=== PATIENT | male | born 1950 | race Caucasian/White ===

== ENCOUNTER 2016-10-13 17:30 | Emergency (ER) | payer MEDICARE ==
[2016-10-13] MEDS ORDERED: KETOROLAC TROMETHAMINE 30 MG/ML VIAL ONE (18:40)
[2016-10-13] MEDS ORDERED: METOCLOPRAMIDE HCL 10 MG/2 ML VIAL ONE (18:40)
--- NOTE | 2016-10-13 19:17 | RADIOLOGY REPORT ---
HISTORY: Neck spasms COMPARISON: None. FINDINGS: AP, lateral, odontoid, and bilateral oblique views of the cervical spine are obtained. Vertebral body height and alignment are preserved moderate to severe C5-C6 and C6-C7 disc height loss with anterior and posterior spurring. No displaced fracture. No high-grade osseous foraminal stenosis. Prevertebra l soft tissues are nondisplaced. IMPRESSION: 1. No acute abnormality. 2. C5-C6 and C6-C7 degenerative disc disease. Final Electronic Signature: This report was electronically signed by Jasvir Luque MD on 10/13/2016 7:15 PM. keysha /
--- NOTE | 2016-10-13 19:30 | ER PHYSICIAN DOCUMENTATION ---
Physician Documentation [facility] Name:Talita Borrego Age:65 yrs Sex:Male :1950 Arrival Date:10/13/2016 Time:17:30 Bed5 Private MD: Mookie Nelson Disposition: 10/13/16 18:49 Discharged to Home/Self Care. Impression: Cervical Disc Degeneration. - Condition is Good. - Discharge Instructions: NECK PAIN, No Trauma. - Prescriptions for Hydrocodone- Acetaminophen 7.5-325 mg Oral Tablet - take 1 tablet by ORAL route every 6 hours As needed; 20 tablet. Naprosyn 500 mg Oral Tablet - take 1 tablet by ORAL route 2 times per day take with food; 30 tablet. Prednisone 20 mg Oral Tablet - take 3 tablet by ORAL route once daily for 5 days; 15 tablet. - Medical Reconciliation form form. - Follow up: Aaron Parra DO, Jasvir Kiran MD; When: 7 - 10 days; Reason: Recheck today's complaints. - Problem is an acute exacerbation. - Symptoms have improved. HPI: 10/14 08:01 This 65 yrs old Male presents to ER via Private Vehicle with complaints of be Neck Pain, <24hrs Old. 08:01 The patient or guardian complains of decreased range of motion, pain, that is acute, be spasm, stiffness, all began upon awakening this morning. Used massage therapist in past with good results. Active lifestyle and previous arthroscopic knee surgeries. Historical: - Allergies: No known drug Allergies; - Home Meds: 1. Lisinopril Oral 2. Primidone Oral 3. pantoprazole oral - PMHx: Hypertension; - PSHx: Knee surgery; - Tetanus: < 10 years. - Ebola Screening: : Patient negative for fever greater than or equal to 101.5 degrees Fahrenheit, and additional compatible Ebola Virus Disease symptoms. - Immunization history: Flu Vaccine None. - Social history: Smoking status: Patient states was never smoker of tobacco. ROS: 08:01 Neck: Positive for pain with movement, pain at rest, stiffness, Negative for injury or be acute deformity. 08:01 All other systems are negative. Exam: 08:01 Constitutional: This is a well developed, well nourished patient who is awake, alert, be and in acute distress. 08:01 Head/face: Exam is negative for acute changes, obvious evidence of injury or deformity. 08:01 ENT: Exam is negative for acute changes, TM's: are normal, Nose: is normal. 08:01 Neck: External neck: tenderness, that is moderate, C-spine: no acute changes, ROM/movement: limited range of motion, that is moderate. 08:05 Neuro: Motor: is normal, Sensation: is normal, Gait: is steady, at a normal pace, be without difficulty, Deep tendon reflexes are Babinski testing is normal. 08:06 Neck: C-spine: Nexus Criteria: there is no tenderness to the posterior midline, the be patient is not clinically intoxicated, no focal neurologic deficit is appreciated, no distracting injury is present. 08:06 Neck: C-spine: vertebral tenderness, is not appreciated. be Vital Signs: 10/13 17:43 BP 152 / 70; Pulse 74; Resp 16; Temp 98.4(O); Pulse Ox 94% on R/A; Weight 99.79 kg; rh Height 6 ft. 1 in. (185.42 cm); Pain 9/10; 17:43 Body Mass Index 29.03 (99.79 kg, 185.42 cm) rh Danie Coma Score: 10/14 08:06 Eye Response: spontaneous(4). Verbal Response: oriented(5). Motor Response: obeys be commands(6). Total: 15. MDM: 10/13 18:38 Patient medically screened. be 10/14 08:01 Differential diagnosis: arthritis, Cervical Disc Herniation Cervical Discogenic Pain be Cervical Facet Syndrome Degenerative Disc Disease. Data reviewed: vital signs, nurses notes, radiologic studies, plain films, and as a result, I will discharge patient, administer steroids, prednisone, prescribe pain medication, Dilaudid, hydrocodone, Toradol, Naproxen and refer to Orthopedics for possible MRI at future date. 10/13 19:20 Order name: CERVICAL SPINE; 4 VIEWS [id number]; Complete Time: 08:07 EDMS 10/14 08:07 Interpretation: Normal Except: DDD. be Dispensed Medications: 10/13 18:34 Drug: Toradol 30 mg; Route: IM; Site: left gluteus; rh 19:23 Follow up: Response: Pain is decreased 18:34 Drug: Reglan 5 mg; Route: IM; Site: left gluteus; rh 19:23 Follow up: Response: Pain is decreased rh 18:34 Drug: Dilaudid 1 mg; Route: IM; Site: left gluteus; rh 19:23 Follow up: Response: Pain is decreased rh 19:29 Drug: HYDROcodone-acetaminophen (5mg/325 mg) 1-2 tabs 1 tabs; Route: PO; rh 19:29 Follow up: Response: Pharmacy closed - take home med pack rh 19:29 CANCELLED (Other Intervention Used; DONT CARRY MEd): Naproxen 500 mg PO once rh 19:29 Drug: predniSONE 60 mg; Route: PO; rh 19:29 Follow up: Response: No adverse reaction rh Signatures: Mookie Israel MD MD be Hofsess, Rachel
--- NOTE | 2016-10-13 19:30 | ER NURSING DOCUMENTATION ---
Nurse's Notes [facility] Name:Talita Borrego Age:65 yrs Sex:Male :1950 Arrival Date:10/13/2016 Time:17:30 Bed5 Private MD: Diagnosis:Cervical Disc Degeneration Presentation: 10/13 17:35 Acuity: SANDI 4 17:40 Presenting complaint: Patient states: Pt has been having intermittent neck spasms since 5 am on the left side. Pt had similar episodes in the past. Transition of care: Home. 17:40 Method Of Arrival: Private Vehicle Triage Assessment: 17:41 General: Appears in no apparent distress, Behavior is cooperative. Pain: Complains of rh pain in left sternocleidomastoid. EENT: Oral mucosa is moist. Neuro: Level of Consciousness is awake, alert, obeys commands, Oriented to person, place, time, event, Occupational Therapist Assistants are equal bilaterally Moves all extremities. Gait is steady. Cardiovascular: Capillary refill < 3 seconds. Derm: Skin is intact, is healthy with good turgor, Skin is pink, warm & dry. Musculoskeletal: Circulation, motion, and sensation intact Range of motion intact in all extremities. Historical: - Allergies: No known drug Allergies; - Home Meds: 1. Lisinopril Oral 2. Primidone Oral 3. pantoprazole oral - PMHx: Hypertension; - PSHx: Knee surgery; - Tetanus: < 10 years. - Ebola Screening: : Patient negative for fever greater than or equal to 101.5 degrees Fahrenheit, and additional compatible Ebola Virus Disease symptoms. - Immunization history: Flu Vaccine None. - Social history: Smoking status: Patient states was never smoker of tobacco. Screenin:43 Infectious Disease Risk None. Abuse screen: Denies threats or abuse. Denies injuries rh from another. Nutritional screening: No deficits noted. Assessment: 17:43 See Triage Assessment done by same RN. 19:30 Reassessment: Patient denies pain at this time. Patient states feeling better. Patient rh states symptoms have improved. Vital Signs: 17:43 BP 152 / 70; Pulse 74; Resp 16; Temp 98.4(O); Pulse Ox 94% on R/A; Weight 99.79 kg; rh Height 6 ft. 1 in. (185.42 cm); Pain 9/10; 17:43 Body Mass Index 29.03 (99.79 kg, 185.42 cm) rh Sedley Coma Score: 10/14 08:06 Eye Response: spontaneous(4). Verbal Response: oriented(5). Motor Response: obeys be commands(6). Total: 15. ED Course: 10/13 17:35 Patient arrived in ED. ama 17:35 Edel Thomas is Primary Nurse. rh 17:35 Triage completed. rh 17:43 Notified ED Physician of patient's arrival and chief complaint. Dr. Israel. rh 17:43 Valuables Remains with patient Patient has correct armband on for positive rh identification. Placed in gown. Call light in reach. Side rails up X 1. Family accompanied patient. 18:38 Mookie Irsael MD is Attending Physician. be 18:48 Aaron Parra DO, Jasvir Kiran MD is Referral Physician. be Administered Medications: 18:34 Drug: Toradol 30 mg; Route: IM; Site: left gluteus; rh 19:23 Follow up: Response: Pain is decreased rh 18:34 Drug: Reglan 5 mg; Route: IM; Site: left gluteus; rh 19:23 Follow up: Response: Pain is decreased rh 18:34 Drug: Dilaudid 1 mg; Route: IM; Site: left gluteus; rh 19:23 Follow up: Response: Pain is decreased rh 19:29 Drug: HYDROcodone-acetaminophen (5mg/325 mg) 1-2 tabs 1 tabs; Route: PO; rh 19:29 Follow up: Response: Pharmacy closed - take home med pack rh 19:29 CANCELLED (Other Intervention Used; DONT CARRY MEd): Naproxen 500 mg PO once rh 19:29 Drug: predniSONE 60 mg; Route: PO; rh 19:29 Follow up: Response: No adverse reaction rh Outcome: 18:49 Discharge ordered by . be 19:30 Discharged to home ambulatory. rh 19:30 Condition: improved 19:30 Discharge Assessment: Patient awake, alert and oriented x 3. No cognitive and/or functional deficits noted. Patient verbalized understanding of disposition instructions. 19:30 Discharge instructions given to patient, family, Instructed on discharge instructions, follow up and referral plans. medication usage, Demonstrated understanding of instructions, medications, Prescriptions given X 3. 19:30 Patient left the ED. Signatures: Mookie Israel MD MD be Averdick, Andrew, Reg Reg ama Hofsess, Rachel
[2016-10-13] MEDS ORDERED: predniSONE 10 MG TABLET PO ONE (19:34)
== END 2016-10-13 19:30 | disposition home or self-care (01) ==
LOC: ER 17:30
DX: M50.322 Other cervical disc degeneration at C5-C6 level (principal); M50.323 Other cervical disc degeneration at C6-C7 level; M50.30 Other cervical disc degeneration, unspecified cervical region; M43.6 Torticollis; I10 Essential (primary) hypertension; Z79.899 Other long term (current) drug therapy
CPT/HCPCS: 72050; 96372; 99283; J1170; J1885; J2765; J7512